=== PATIENT | male | born 1970 | race Caucasian/White ===

== ENCOUNTER 2017-05-09 14:49 | Emergency (ER) | payer BC ==
[~2017-05-09] VITALS: Ht 175.3 cm; Wt 74.8 kg
--- NOTE | ~2017-05-09 | US85 ---
[facility] A Service of [facility] & [facility] RADIOLOGY TEXT RESULTS PATIENT: ELIEZER STUART LOCATION: [facility] : 66 UNIT #: [id number] AGE: [address]: Regina Street MD SEX: M ORDER DR: [id number] [facility] [address] [facility]. [place], [place] [address] [id number] MR#: [id number] Acc #: [id number] NAME: ELIEZER STUART : 1970 SEX: M STUDY DATE/TIME: 05/09/2017 18:13 UNIT: [facility] ROOM: STUDY DESCRIPTION: [facility] [facility] [employer] [facility] Attending Physician: Regina Street M.D. Ordering Physician: Regina Street M.D. Primary Care Physician: Alcides Pena M.D. MEDICAL IMAGING REPORT This report is preliminary unless electronic signature is present EXAM Right lower extremity venous duplex ultrasound 05/09/2017 HISTORY 47-year-old male with right calf pain beginning yesterday. COMPARISON None. FINDINGS Real-time hutchins-scale, color Doppler, and spectral Doppler analysis of the right lower extremity deep venous system demonstrates normal venous waveforms with normal compressibility and augmentation throughout. No evidence of right lower extremity deep venous thrombosis. IMPRESSION Negative for right lower extremity DVT. Dictated by... Tommy Logan M.D. THIS IS AN ELECTRONICALLY VERIFIED REPORT Tommy Logan M.D. at 05/10/2017 4:08 PM NILA/annie TD: 05/10/2017 10:05 JOB #: [id number] MEDICAL IMAGING REPORT Page 1 of 1 COPY
[~2017-05-09 14:49] MED LIST: ACIPHEX20 MG; ACIPHEX20 MG PO; AUGMENTIN PO; CLEOCIN PO; FLOMAX0.4 MG PO; IMODIUM2 MG PO; LORTAB 7.5-5001 TAB; LORTAB 7.5-5001 TAB PO; PERCOCET7.5 PO; TYLOX 5/500 CAP1 CAP PO; VICODIN 5/500 T1 TAB PO; ZANTAC
[2017-05-09 18:06] LABS: BASOPHIL# 0.1 X10e3 (0-0.3); BASOPHIL% 0.7 % (0-2.5); EOSINOPHIL# 0.3 X10e3 (0-0.7); EOSINOPHIL% 2.9 % (0.0-7.0); HEMATOCRIT 42.2 % (38.0-50.0); HEMOGLOBIN 14.5 gm/dL (13.0-16.0); LYMPHOCYTE# 2.5 X10e3 (1.0-3.5); MEAN CELL VOLUME 86.3 FL (83-96); MEAN CORPUSCULAR HEMOGLOBIN 29.6 PG (28-34); MEAN CORPUSCULAR HGB CONC 34.4 g/dL (30-36); MEAN PLATELET VOLUME 7.2 FL (6.5-11.5); MONOCYTE% 9.9 % (3.0-12.0); NEUTROPHIL# 5.9 X10e3 (1.5-7.1); NEUTROPHIL% 60.5 % (40-75); PLATELET COUNT 308 X10e3 (140-420); RED CELL DISTRIBUTION WIDTH 13.4 % (11.0-15.5); WHITE BLOOD COUNT 9.8 X10e3 (4.0-10.5)
[2017-05-09 18:22] LABS: DIFF IND NO
[2017-05-09 18:33] LABS: INR 0.9; PARTIAL THROMBOPLASTIN TIME 27.2 SECONDS (23.5-31.3); PROTHROMBIN TIME (PATIENT) 10.2 SECONDS (10.0-11.7)
[2017-05-09 18:34] LABS: ALBUMIN SERUM 4.1 g/dL (3.5-5.0); BILIRUBIN, DIRECT 0.1 mg/dL (0.0-0.2); BILIRUBIN,INDIRECT 0.1 mg/dL (0.0-0.9); BILIRUBIN,TOTAL 0.2 mg/dL (0.2-2.0); BUN/CREATININE RATIO 6.66; CREATININE SERUM 0.9 mg/dL (0.6-1.4); GLOM FILT RATE Estimated 99.9 mL/min (>60); POTASSIUM 4.6 mmol/L (3.5-5.1); PROTEIN TOTAL SERUM 7.6 g/dL (6.0-8.3)
== END 2017-05-09 19:20 | disposition home or self-care (01) ==
LOC: CED 14:49
PROVIDERS: Emergency Medicine
DX: M79.89 Other specified soft tissue disorders (principal); M25.561 Pain in right knee; K21.9 Gastro-esophageal reflux disease without esophagitis; F17.210 Nicotine dependence, cigarettes, uncomplicated
CPT/HCPCS: 36415; 80048; 80076; 85025; 85610; 85730; 93971; 99284